=== PATIENT | female | born 1980 | race Caucasian/White ===

== ENCOUNTER 2020-08-20 14:00 | Inpatient (IN) | payer OTHER ==
--- NOTE | 2020-08-20 16:28 | BHS.RME ---
Substance Use & Tx History - Substance Use History Alcohol Substance amount: 4-8 24 oz beers Frequency of use: Daily Substance route: Oral Date of Last Use: 08/20/20 (Started drinking at age 23) Nicotine Substance amount: 20 Frequency of use: Daily Substance route: Smoking Date of Last Use: 08/20/20 (Started in 20's) - Last Treatment Date of last treatment: 2007 Treatment type: [facility]) Physical/Psych/Mental Status - Behavior General Behavior: Increased activity (restlessness, agitation) - Cooperativeness Cooperativeness: Cooperative - Physical Health Problems Is patient presently having any pain?: No Does patient presently have any injuries (include location): No Does patient currently have a fever: No CIWA Nausea/Vomitin-No Nausea/No Vomiting Muscle Tremors: 4-Moderate,w/Arms Extend Anxiety: 4-Mod. Anxious/Guarded Agitation: 4-Moderately Restless Paroxysmal Sweats: 3 Orientation: 0-Oriented Tacttile Disturbances: 0-None Auditory Disturbances: 0-None Visual Disturbances: 0-None Headache: 6-Very Severe (States frontal sharp headache "10". Denies head injury) CIWA-Ar Total Score: 21
[2020-08-20 16:50] VITALS: BMI 29.7
--- NOTE | 2020-08-20 17:07 | HP ---
CIWA Score Nausea/Vomitin-No Nausea/No Vomiting Muscle Tremors: 4-Moderate,w/Arms Extend Anxiety: 4-Mod. Anxious/Guarded Agitation: 4-Moderately Restless Paroxysmal Sweats: 3 Orientation: 0-Oriented Tacttile Disturbances: 0-None Auditory Disturbances: 0-None Visual Disturbances: 0-None Headache: 6-Very Severe (States frontal sharp headache "10". Denies head injury) CIWA-Ar Total Score: 21 - Admission Criteria OASAS Guidelines: Admission for Medically Managed Detox: Requires at least one of the followin. CIWA greater than 12 2. Seizures within the past 24 hours 3. Delirium tremens within the past 24 hours 4. Hallucinations within the past 24 hours 5. Acute intervention needed for co occurring medical disorder 6. Acute intervention needed for co occurring psychiatric disorder 7. Severe withdrawal that cannot be handled at a lower level of care (continued vomiting, continued diarrhea, abnormal vital signs) requiring intravenous medication and/or fluids 8. Patient presents the following: CIWA greater than 12 Admission Criteria Met: Admission criteria met Admission [facility] Chief Complaint: "Trying to decrease the drinking" Allergies/Adverse Reactions: Allergies Allergy/AdvReac Type Severity Reaction Status Date / Time codeine Allergy Severe Verified 08/20/20 17:56 History of Present Illness: 40 yo presents w/ alcohol withdrawal symptoms, seeking detox. Referred to [facility] by mother, who works at [employer]. Patient is ambivalent about staying but states will try to stay. Denies seizures or overdoses. Feels has had blackouts. REANNA: 0.0 UTox: Neg Substance Use History Alcohol Substance amount: 4-8 24 oz beers Frequency of use: Daily Substance route: Oral Date of Last Use: 08/20/20 (Started drinking at age 23) Nicotine Substance amount: 20 Frequency of use: Daily Substance route: Smoking Date of Last Use: 08/20/20 (Started in 20's) PMHx: Exercise induced asthma; MHHx: Anxiety. Denies thoughts of harming self or others. SHx: Domiciled. Employed. Denies legal issues. Search Terms: Leeann Matta, 1980 Search Date: 08/20/2020 17:06:36 PM The Drug Utilization Report below displays all of the controlled substance prescriptions, if any, that your patient has filled in the last twelve months. The information displayed on this report is compiled from pharmacy submissions to the Department, and accurately reflects the information as submitted by the pharmacies. This report was requested by: Magali Molina | Reference #: [id number] There are no results for the search terms that you entered. Exam Limitations: No Limitations - Ebola screening Have you traveled outside of the country in the last 21 days: No (Denies COVID exposure) Have you had contact with anyone from an Ebola affected area: No Have you been sick,other than usual withdrawal symptoms: No Do you have a fever: No - Review of Systems Constitutional: Chills, Diaphoresis, Changes in sleep (Difficulty falling and stayong asleep), Weight Stable EENT: reports: Other (States hard of hearing) Respiratory: reports: No Symptoms reported Cardiac: reports: Irregular Heart Rate GI: reports: No Symptoms Reported : reports: No Symptoms Reported Musculoskeletal: reports: No Symptoms Reported Integumentary: reports: No Symptoms Reported Neuro: reports: Headache, Tremors Endocrine: reports: No Symptoms Reported Hematology: reports: No Symptoms Reported Psychiatric: reports: Agitated, Anxious, Depressed (Denies thoughts of harming self or others) Patient History - PPD History Previous Implant?: Yes Documented Results: Negative w/o proof Implanted On Prior R Admission?: No PPD to be Administered?: Yes - Reproductive History Patient is a Female of Child Bearing Age (11 -55 yrs old): Yes Last Menstrual Period: 08/14/20 Patient : No - Smoking Cessation Smoking history: Current every day smoker Have you smoked in the past 12 months: Yes Aproximately how many cigarettes per day: 20 Hx Chewing Tobacco Use: Yes Initiated information on smoking cessation: Yes 'Breaking Loose' booklet given: 08/20/20 - Substance & Tx. History Hx Alcohol Use: Yes Hx Substance Use: Yes Substance Use Type: Alcohol Hx Substance Use Treatment: No (Denies) Admission Physical Exam BHS - Vital Signs Vital Signs: Vital Signs - 24 hr 08/20/20 16:47 Temperature 97.3 F L Pulse Rate 104 H Respiratory 18 Rate Blood Pressure 141/93 - Physical General Appearance: Yes: Nourished, Mild Distress, Tremorous, Irritable, Sweating (Increased facial moisture), Anxious HEENTM: Yes: EOMI, Hearing grossly Normal, Normocephalic, Normal Voice, JOLIE, Pharynx Normal Respiratory: Yes: Lungs Clear, Normal Breath Sounds, No Respiratory Distress Neck: Yes: No masses,lesions,Nodules, Supple Breast: Yes: Breast Exam Deferred Cardiology: Yes: Regular Rhythm, Regular Rate Abdominal: Yes: Non Tender, Soft, Increased Bowel Sounds, Protuberent Genitourinary: Yes: Within Normal Limits Back: Yes: Normal Inspection Musculoskeletal: Yes: full range of Motion, Gait Steady Extremities: Yes: Normal Capillary Refill, Tremors Neurological: Yes: pipe racker II-XII NML intact, Alert, Motor Strength 5/5 Integumentary: Yes: Normal Color, Warm, Other (Old healed cutting mayer on both arms) Lymphatic: Yes: Within Normal Limits - Diagnostic (1) Alcohol dependence with withdrawal, uncomplicated Current Visit: Yes Status: Acute (2) Nicotine dependence, unspecified, uncomplicated Current Visit: Yes Status: Acute Qualifiers: Nicotine product type: cigarettes Qualified Code(s): F17.210 - Nicotine dependence, cigarettes, uncomplicated (3) Anxiety Current Visit: Yes Status: Acute (4) History of mental problems Current Visit: Yes Status: Chronic Comment: ie. cutting Cleared for Admission [facility] - Detox or Rehab [facility] Level of Care: Medically Managed Detox Regimen/Protocol: Librium Claeared for Rehab Admission: No Breathalyzer - Breathalyzer Breathalyzer: 0 Urine Drug Screen - Test Device Lot number: [id number] Expiration date: 02/23/22 - Control Is test valid?: Yes - Results Drug screen NEGATIVE: Yes Inpatient Rehab Admission - Rehab Decision to Admit Inpatient rehab admission?: No
[2020-08-20] MEDS ORDERED: MENTHOL/PHENOL 1 EACH UD MM PRN (17:22)
[2020-08-20] MEDS ORDERED: ACETAMINOPHEN 325 MG TABLET (FP) PO PRN ×2 (17:22)
[2020-08-20] MEDS ORDERED: BISMUTH SUBSALICYLATE 524 MG/30 ML UD PO PRN (17:22)
[2020-08-20] MEDS ORDERED: NICOTINE POLACRILEX 2 MG GUM BUC PRN (17:22)
[2020-08-20] MEDS ORDERED: MAGNESIUM HYDROX 2400MG/30ML ORAL SUSPENSION 30 ML CUP PO PRN (17:22)
[2020-08-20] MEDS ORDERED: MAG HYDROX/AL HYDROX/SIMETH 30 ML UNIT-DOSE CUP PO PRN (17:22)
[2020-08-20] MEDS ORDERED: ONDANSETRON *ODT* 4 MG TABLET SL PRN (17:22)
[2020-08-20] MEDS ORDERED: MAGNESIUM CITRATE 300 ML BOTTLE PO PRN (17:22)
[2020-08-20] MEDS ORDERED: METHOCARBAMOL 500 MG TABLET PO PRN (17:22)
[2020-08-20] MEDS ORDERED: IBUPROFEN 400 MG TABLET (FP) PO PRN (17:22)
[2020-08-20] MEDS ORDERED: chlordiazePOXIDE HCL 10 MG CAPSULE PO PRN (17:30)
[2020-08-20] MEDS ORDERED: chlordiazePOXIDE HCL 25 MG CAPSULE PO ONE (18:30)
[2020-08-20] MEDS: NICOTINE 21 MG/24 HOURS TOPICAL PATCH TD SCH (19:07)
[2020-08-20] MEDS ORDERED: MELATONIN 5 MG TABLETS PO SCH (22:00)
[2020-08-20] MEDS: THIAMINE HCL 100 MG TABLET (FP) PO SCH (22:03)
[2020-08-20] MEDS: chlordiazePOXIDE HCL 25 MG CAPSULE PO SCH (22:03)
[2020-08-20] MEDS ORDERED: hydrOXYzine PAMOATE 50 MG CAPSULE (FP) PO ONE (23:00)
[2020-08-21] MEDS: chlordiazePOXIDE HCL 25 MG CAPSULE PO SCH ×4 (05:29→22:11)
[2020-08-21] MEDS ORDERED: chlordiazePOXIDE HCL 25 MG CAPSULE ONE ×3 (09:40→21:39)
[2020-08-21 10:54] LABS: HEMATOCRIT 41.2 % (32.4-45.2); HEMOGLOBIN 13.9 GM/dL (10.7-15.3); MCH 33.7 pg (25.7-33.7); MCHC 33.8 g/dl (32.0-36.0); MEAN CELL VOLUME 99.9 fl (80-96); MEAN PLT VOLUME 10.1 fl (7.5-11.1); PLATELET COUNT 181 K/MM3 (134-434); RBC 4.12 M/mm3 (3.60-5.2); RDW 13.2 % (11.6-15.6)
[2020-08-21 11:03] LABS: ALBUMIN 3.6 g/dl (3.4-5.0); BILIRUBIN,TOTAL 0.8 mg/dL (0.2-1); BLOOD UREA NITROGEN 7.6 mg/dL (7-18); CALCIUM 9.2 mg/dL (8.5-10.1); CREATININE 0.7 mg/dL (0.55-1.3); POTASSIUM 4.2 mmol/L (3.5-5.1); TOT PROT 7.5 g/dl (6.4-8.2)
--- NOTE | 2020-08-21 11:05 | PN ---
S CIWA - CIWA Score Nausea/Vomitin-Mild Nausea/No Vomiting Muscle Tremors: 4-Moderate,w/Arms Extend Anxiety: 4-Mod. Anxious/Guarded Agitation: 3 Paroxysmal Sweats: No Perspiration Orientation: 0-Oriented Tacttile Disturbances: 0-None Auditory Disturbances: 0-None Visual Disturbances: 2-Mild Sensitivity Headache: 2-Mild CIWA-Ar Total Score: 16 BHS Progress Note (SOAP) Subjective: 40 years old female was admitted on 08/20/20 for alcohol withdrawal sx management treating [facility] reports trouble to fall asleep belsomra 5 mg po x 1 ms elser states that she was taking trazodone 100mg every day psychiatric referral in place Objective: 08/21/20 11:03 Vital Signs - 24 hr 08/20/20 08/20/20 08/20/20 16:47 18:53 20:33 Temperature 97.3 F L 98.0 F 97.3 F L Pulse Rate 104 H 91 H 95 H Respiratory 18 18 18 Rate Blood Pressure 141/93 124/81 146/85 O2 Sat by Pulse 97 98 Oximetry (%) 08/21/20 08/21/20 06:34 09:05 Temperature 97.5 F L 97 F L Pulse Rate 80 86 Respiratory 16 16 Rate Blood Pressure 120/75 104/73 O2 Sat by Pulse 100 Oximetry (%) Laboratory Tests 08/21/20 07:50 Sodium 136 Potassium 4.2 Chloride 101 Carbon Dioxide 29 Anion Gap 6 L BUN 7.6 Creatinine 0.7 Est GFR (CKD-EPI)AfAm 127.39 Est GFR (CKD-EPI)NonAf 109.91 Random Glucose 92 Calcium 9.2 Total Bilirubin 0.8 AST 21 ALT 24 Alkaline Phosphatase 65 Total Protein 7.5 Albumin 3.6 Laboratory Tests 08/21/20 11:04 lab noted Assessment: 08/21/20 11:04 alcohol withdrawal Plan: librium regiment
[2020-08-21] MEDS: NICOTINE 21 MG/24 HOURS TOPICAL PATCH TD SCH (11:55)
[2020-08-21] MEDS: PRENATAL VITAMINS W/ FOLIC ACID TABLET (FP) PO SCH (11:55)
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
[2020-08-21] MEDS: hydrOXYzine PAMOATE 50 MG CAPSULE (FP) PO PRN ×2 (15:31→22:11)
[2020-08-21] MEDS ORDERED: SUVOREXANT 5 MG TABLET ONE (21:39)
--- NOTE | 2020-08-21 21:41 | EKG ---
Test Reason : Blood Pressure : / mmHG Vent. Rate : 089 BPM Atrial Rate : 089 BPM P-R Int : 138 ms QRS Dur : 090 ms QT Int : 392 ms P-R-T Axes : 057 077 014 degrees QTc Int : 476 ms NORMAL SINUS RHYTHM NORMAL ECG NO PREVIOUS ECGS AVAILABLE Confirmed by MACARIO HARRIS MD ([id number]) on 08/21/2020 9:41:17 PM Referred By: Confirmed By:MACARIO HARRIS MD
[2020-08-21] MEDS ORDERED: SUVOREXANT 5 MG TABLET PO ONE (22:00)
[2020-08-21] MEDS ORDERED: traZODone HCL 50 MG TABLET (FP) PO SCH (22:00)
[2020-08-21] MEDS: THIAMINE HCL 100 MG TABLET (FP) PO SCH (22:10)
[2020-08-22] MEDS ORDERED: chlordiazePOXIDE HCL 10 MG CAPSULE ONE (04:24)
[2020-08-22] MEDS: chlordiazePOXIDE HCL 10 MG CAPSULE PO SCH ×2 (05:33→14:31)
[2020-08-22] MEDS: hydrOXYzine PAMOATE 50 MG CAPSULE (FP) PO PRN (09:42)
[2020-08-22] MEDS: NICOTINE 21 MG/24 HOURS TOPICAL PATCH TD SCH (09:42)
[2020-08-22] MEDS: PRENATAL VITAMINS W/ FOLIC ACID TABLET (FP) PO SCH (09:44)
--- NOTE | 2020-08-22 12:54 | DS ---
[facility] Detox Discharge Summary Admission Date: 08/20/20 Discharge Date: 08/22/20 - History Present History: Alcohol Dependence Additional Comments: 40 years old male was admitted on 08/20/20 for alcohol withdrawal sx management treated with librium detox regiment ms savage prefers to returning to work and her usual out patient treatment program ms savage states that her friend pick her up around 1430 she prefers to go home and received vivital from her out patient program ms savage is alert oriented x 3 speech clearly coherently ambulating steady gait General Appearance: Yes: Nourished, no Distress, no Tremorous, not Irritable, no Sweating, less Anxious HEENTM: Yes: EOMI, Hearing grossly Normal, Normocephalic, Normal Voice, JOLIE, Pharynx Normal Respiratory: Yes: Lungs Clear, Normal Breath Sounds, No Respiratory Distress Neck: Yes: No masses,lesions,Nodules, Supple Breast: Yes: Breast Exam Deferred Cardiology: Yes: Regular Rhythm, Regular Rate Abdominal: Yes: Non Tender, Soft, Increased Bowel Sounds, Protuberent Genitourinary: Yes: Within Normal Limits Back: Yes: Normal Inspection Musculoskeletal: Yes: full range of Motion, Gait Steady Extremities: Yes: Normal Capillary Refill, no Tremors Neurological: Yes: 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 NML intact, Alert, Motor Strength 5/5 Integumentary: Yes: Normal Color, Warm, Other (Old healed cutting mayer on both arms) Lymphatic: Yes: Within Normal Limits Pertinent Past History: time for discharge 40 minutes treatment team met with ms savage to discuss benefits of librium regiment completion ms savage insists to leave the detox unit that she prefers to go home and stay in out patient program MS SAVAGE PREFERS TO FOLLOW UP WITH HER OWN MD IN THE COMMUNITY AND HER OUT PATIENT PROGRAM MS SVAAGE PREFERS TO GO TO WORK AND GO TO OUT PATIENT PROGRAM FOR MEDICAL AND MENTAL ISSUES MS SAVAGE INSISTS TO LEAVE THE DETOX "I WANT TO GO TO MY OUT PATIENT PROGRAM AND GO TO MY OWN MD" - Physical Exam Results Vital Signs: Vital Signs Temperature 97.3 F L 08/22/20 08:47 Pulse Rate 110 H 08/22/20 08:47 Respiratory Rate 16 08/22/20 08:47 Blood Pressure 102/68 08/22/20 08:47 O2 Sat by Pulse Oximetry (%) 98 08/22/20 06:43 Pertinent Admission Physical Exam Findings: alcohol withdrawal Vital Signs - 24 hr 08/21/20 08/21/20 08/22/20 17:21 20:36 06:43 Temperature 97.5 F L 97.5 F L 97.5 F L Pulse Rate 85 96 H 70 Respiratory 18 18 18 Rate Blood Pressure 106/76 114/70 115/81 O2 Sat by Pulse 100 100 98 Oximetry (%) 08/22/20 08/22/20 08:47 12:50 Temperature 97.3 F L 97.8 F Pulse Rate 110 H 92 H Respiratory 16 18 Rate Blood Pressure 102/68 103/73 O2 Sat by Pulse 98 Oximetry (%) Laboratory Tests 08/20/20 08/20/20 08/21/20 16:50 20:00 07:50 WBC 6.0 RBC 4.12 Hgb 13.9 Hct 41.2 MCV 99.9 H MCH 33.7 MCHC 33.8 RDW 13.2 Plt Count 181 MPV 10.1 Sodium Potassium Chloride Carbon Dioxide Anion Gap BUN Creatinine Est GFR (CKD-EPI)AfAm Est GFR (CKD-EPI)NonAf Random Glucose Calcium Total Bilirubin AST ALT Alkaline Phosphatase Total Protein Albumin POC Urine HCG, Qual Negative Syphilis Serology COVID-19 (MARGARET) Not detected 08/21/20 08/21/20 07:50 07:50 WBC RBC Hgb Hct MCV MCH MCHC RDW Plt Count MPV Sodium 136 Potassium 4.2 Chloride 101 Carbon Dioxide 29 Anion Gap 6 L BUN 7.6 Creatinine 0.7 Est GFR (CKD-EPI)AfAm 127.39 Est GFR (CKD-EPI)NonAf 109.91 Random Glucose 92 Calcium 9.2 Total Bilirubin 0.8 AST 21 ALT 24 Alkaline Phosphatase 65 Total Protein 7.5 Albumin 3.6 POC Urine HCG, Qual Syphilis Serology Non-reactive COVID-19 (MARGARET) lab noted - Treatment Hospital Course: Detox Protocol Followed, Detoxed Safely, Responded well, Discharged Condition Good, Rehab Referral Accepted Patient has Accepted a Rehab Referral to: [facility] - Medication Discharge Medications: Ambulatory Orders traZODone HCL [Trazodone HCl] 50 mg PO HS 08/20/20 traZODone HCL [Trazodone HCl] 50 mg PO HS #30 tablet 08/22/20 - Diagnosis (1) Substance induced mood disorder Current Visit: Yes Status: Suspected (2) Alcohol dependence with withdrawal, uncomplicated Current Visit: Yes Status: Acute (3) Nicotine dependence, unspecified, uncomplicated Current Visit: Yes Status: Acute Qualifiers: Nicotine product type: cigarettes Qualified Code(s): F17.210 - Nicotine dependence, cigarettes, uncomplicated (4) Asthma Current Visit: Yes Status: Chronic Qualifiers: Asthma severity: mild Asthma persistence: intermittent Asthma complication type: with status asthmaticus Qualified Code(s): J45.22 - Mild intermittent asthma with status asthmaticus - AMA Did Patient Leave Against Medical Advice: No CIWA Score - CIWA Score Nausea/Vomitin-No Nausea/No Vomiting Muscle Tremors: 2 Anxiety: 3 Agitation: 2 Paroxysmal Sweats: No Perspiration Orientation: 0-Oriented Tacttile Disturbances: 0-None Auditory Disturbances: 0-None Visual Disturbances: 2-Mild Sensitivity Headache: 2-Mild CIWA-Ar Total Score: 11
--- NOTE | 2020-08-22 13:29 | PN ---
[facility] Progress Note Note: Psychiatry Attending's note : Approached by patient. Requests script for trazodone. Chart reviewed. Ms Matta was admitted on 08/20/20. For detoxification. Decided to leave program. Feels fine. No complaints. Plans to return to work. Seen by Dr Alexander on 08/21/20. Note appreciated. Stable mental status. Trazodone is well tolerated. Trazodone 50 mg po hs # 30 tablets. Sent to [place] [id number] with the patient's informed consent.
[2020-08-22 14:00] VITALS: BP 103/73; PULSE 92; TEMP 97.8
[2020-08-23] MEDS ORDERED: chlordiazePOXIDE HCL 10 MG CAPSULE PO ONE (05:00)
== END 2020-08-22 14:35 | disposition home or self-care (01) | DRG 775 ==
LOC: YASAS 14:00 → Y3N 18:18
PROVIDERS: ADMIT Allergy & Immunology; ATTEND Allergy & Immunology
PROC: HZ2ZZZZ Detoxification Services for Substance Abuse Treatment (ICD-10-PCS; principal; 2020-08-20)
DX: F10.230 Alcohol dependence with withdrawal, uncomplicated (principal); F17.210 Nicotine dependence, cigarettes, uncomplicated; F10.280 Alcohol dependence with alcohol-induced anxiety disorder; F10.282 Alcohol dependence with alcohol-induced sleep disorder; F31.9 Bipolar disorder, unspecified; J45.990 Exercise induced bronchospasm; Z62.810 Personal history of physical and sexual abuse in childhood; Z91.5 Personal history of self-harm; Z88.5 Allergy status to narcotic agent
CPT/HCPCS: 36415; 80053; 81025; 85027; 86780; 93005; 93010; U0003